=== PATIENT | male | born 1940 | race Two or more races ===

== ENCOUNTER 2025-01-23 10:30 | Inpatient (IN) | payer OTHER ==
[~2025-01-23] VITALS: Ht 170.2 cm; Wt 52.6 kg
[2025-01-23] MEDS ORDERED: ARBLI10 MG/1 ML (10:55)
[2025-01-23] MEDS ORDERED: PRILOSEC10 MG (10:56)
[2025-01-23] MEDS ORDERED: PEPCID AC10 MG (10:56)
[2025-01-23] MEDS ORDERED: METFORMIN HCL500 M3 (10:56)
[2025-01-23 13:54] LABS: BASO % 0.5 % (0.1-1.2); EOS # 0.16 (0.04-0.54); HEMATOCRIT 37.2 % (40.1-51.0); HEMOGLOBIN 12.6 g/dL (13.7-17.5); LYMPH # 0.84 (1.18-3.74); LYMPH % 10.4 % (19.3-53.1); MEAN CORPUSCULAR HEMOGLOBIN 29.7 pg (25.6-32.2); MONO # 0.59 (0.24-0.82); MONO % 7.3 % (4.7-12.5); NEUT # 6.44 (1.56-6.13); NEUT % 79.4 % (34.0-71.1); PLATELET COUNT 245 K/uL (163-369); RED BLOOD COUNT 4.24 M/uL (4.63-6.08); RED CELL DISTRIBUTION WIDTH 14.2 % (11.6-14.4)
[2025-01-23 14:09] LABS: INR 1.03; PARTIAL THROMBOPLASTIN TIME 25.8 SECONDS (22.0-34.0); PROTHROMBIN TIME 11.2 SECONDS (9.0-11.5)
[2025-01-23 14:14] LABS: PH,URINE 6.5 (5.0-8.0); URINE APPEARANCE Clear; URINE BILIRRUBIN Negative (NEGATIVE); URINE BLOOD Negative; URINE COLOR Yellow; URINE KETONE Negative (NEGATIVE); URINE LEUKOCYTE Negative; URINE NITRATE Negative; URINE PROTEIN Negative (NEGATIVE)
[2025-01-23 14:14] LABS: ALBUMIN 3.6 gm/dL (3.4-5.0); BILIRUBIN TOTAL 0.94 mg/dL (0.3-1.2); BILIRUBIN,CONJUGATED 0.3 mg/dL (0.0-0.2); BILIRUBIN,UNCONJUGATED 0.64 mg/dL (0.0-0.6); CALCIUM 9.4 mg/dL (8.5-10.1); CREATININE SERUM 0.78 mg/dL (0.70-1.30); GFR 95.29; GLOBULINA 3.1 G/DL (2.4-3.5); POTASSIUM 4.89 mEq/L (3.5-5.1); TOTAL PROTEIN 6.7 gm/dL (6.4-8.2)
[2025-01-23 14:18] LABS: URINE BACTERIA 4.8 uL (0.0-1933); URINE EPITHELIAL CELLS 1.4 uL (0.0-38.8); URINE RBC 2.3 uL (0.0-20.8); URINE WBC 2.6 uL (0.0-23.2)
[2025-01-23 14:19] LABS: URINE CAST 0.29 uL (0.0-1.40); URINE GLUCOSE 100 MG/DL (NEGATIVE)
[2025-01-23] MEDS ORDERED: ONDANSETRON HCL 4 MG in 0.9 % SODIUM CHLORIDE 50 ML IV PRN (20:15)
[2025-01-23] MEDS ORDERED: MORPHINE SULFATE 2 MG/ML CARTRIDGE IV PRN (20:15)
[2025-01-23] MEDS ORDERED: ACETAMINOPHEN 500 MG GEL..CAP PO PRN (20:15)
[2025-01-23] MEDS ORDERED: FAMOTIDINE/PF 20 MG in 0.9 % SODIUM CHLORIDE 8 ML IV PUSH SCH (20:16)
[2025-01-23] MEDS ORDERED: DEXTROSE 50 % IN WATER 0.5 G/ML DISP.SYRIN IV PRN (20:30)
[2025-01-23] MEDS ORDERED: INSULIN LISPRO 1,000 UNIT/10 ML UNITS SUBCUTANEO PRN (20:30)
[2025-01-23] MEDS ORDERED: 0.9 % SODIUM CHLORIDE 1,000 ML IV SCH (20:30)
[2025-01-24 08:16] VITALS: BP 159/82; O2SAT 97
[2025-01-24] MEDS ORDERED: LOSARTAN POTASSIUM 50 MG TABLET PO SCH (09:00)
[2025-01-24 13:11] LABS: CALCIUM 9.6 mg/dL (8.5-10.1); CHOL HDL RATIO 1.7 (0-5.0); CREATININE SERUM 0.79 mg/dL (0.70-1.30); GFR 93.9; POTASSIUM 3.95 mEq/L (3.5-5.1)
[2025-01-24] MEDS ORDERED: ANIDULAFUNGIN 100 MG VIAL IV NR (14:00)
[2025-01-24] MEDS ORDERED: AA 4.25%/CAL/LYTES/DEXT 5% 1,000 ML PERIFERAL SCH (17:00)
[2025-01-24 17:06] VITALS: BP 154/90
[2025-01-24] MEDS ORDERED: ENALAPRILAT DIHYDRATE 1.25 MG/ML VIAL IV PRN (21:45)
[2025-01-25 01:36] VITALS: BP 153/88
[2025-01-25 06:23] LABS: BASO % 0.4 % (0.1-1.2); EOS # 0.19 (0.04-0.54); EOS % 2.4 % (0.7-7.0); HEMATOCRIT 35.5 % (40.1-51.0); HEMOGLOBIN 12.1 g/dL (13.7-17.5); LYMPH % 7.7 % (19.3-53.1); MEAN CORPUSCULAR HEMOGLOBIN 29.8 pg (25.6-32.2); MONO % 7.7 % (4.7-12.5); NEUT # 6.31 (1.56-6.13); NEUT % 81.4 % (34.0-71.1); PLATELET COUNT 216 K/uL (163-369); RED BLOOD COUNT 4.06 M/uL (4.63-6.08); RED CELL DISTRIBUTION WIDTH 14.1 % (11.6-14.4)
[2025-01-25 06:43] LABS: ALBUMIN 3.2 gm/dL (3.4-5.0); BILIRUBIN TOTAL 1.27 mg/dL (0.3-1.2); CALCIUM 8.6 mg/dL (8.5-10.1); CREATININE SERUM 0.61 mg/dL (0.70-1.30); GFR 126.55; GLOBULINA 2.4 G/DL (2.4-3.5); MAGNESIUM 1.8 mg/dL (1.8-2.4); PHOSPHOROUS 3.7 mg/dL (2.5-4.9); POTASSIUM 4.55 mEq/L (3.5-5.1); TOTAL PROTEIN 5.6 gm/dL (6.4-8.2)
[2025-01-25 06:48] LABS: C-REACTIVE PROTEIN 0.8 MG/DL (0.00-0.29)
[2025-01-25 09:02] VITALS: BP 140/78; O2SAT 99
[2025-01-25] MEDS ORDERED: ANIDULAFUNGIN 100 MG VIAL IV SCH (12:00)
[2025-01-25 16:42] VITALS: BP 132/69; O2SAT 100
[2025-01-25] MEDS ORDERED: ENOXAPARIN SODIUM 60 MG/0.6 ML SYRINGE SUBCUTANEO SCH (21:00)
[2025-01-26 02:53] VITALS: BP 13/70
[2025-01-26 09:35] LABS: BASO % 0.5 % (0.1-1.2); EOS # 0.13 (0.04-0.54); EOS % 1.7 % (0.7-7.0); HEMATOCRIT 36.5 % (40.1-51.0); HEMOGLOBIN 12.6 g/dL (13.7-17.5); MEAN CORPUSCULAR HEMOGLOBIN 29.9 pg (25.6-32.2); MONO # 0.62 (0.24-0.82); NEUT # 6.23 (1.56-6.13); NEUT % 80.4 % (34.0-71.1); PLATELET COUNT 221 K/uL (163-369); RED BLOOD COUNT 4.21 M/uL (4.63-6.08); RED CELL DISTRIBUTION WIDTH 14.1 % (11.6-14.4)
[2025-01-26 09:42] VITALS: BP 159/82; O2SAT 99
[2025-01-26 10:37] LABS: ALBUMIN 3.2 gm/dL (3.4-5.0); BILIRUBIN TOTAL 1.13 mg/dL (0.3-1.2); CALCIUM 8.6 mg/dL (8.5-10.1); CREATININE SERUM 0.58 mg/dL (0.70-1.30); GFR 134.13; GLOBULINA 2.3 G/DL (2.4-3.5); MAGNESIUM 1.9 mg/dL (1.8-2.4); PHOSPHOROUS 3.5 mg/dL (2.5-4.9); POTASSIUM 4.5 mEq/L (3.5-5.1); TOTAL PROTEIN 5.5 gm/dL (6.4-8.2)
[2025-01-26 15:07] LABS: COVID-19 AG NEGATIVE (NEGATIVE)
[2025-01-26 22:41] VITALS: BP 164/82
[2025-01-27 02:20] VITALS: BP 179/81; O2SAT 98
[2025-01-27 07:54] LABS: BILIRUBIN TOTAL 1.09 mg/dL (0.3-1.2); CALCIUM 8.6 mg/dL (8.5-10.1); CREATININE SERUM 0.65 mg/dL (0.70-1.30); GFR 117.6; GLOBULINA 2.3 G/DL (2.4-3.5); POTASSIUM 4.57 mEq/L (3.5-5.1); TOTAL PROTEIN 5.3 gm/dL (6.4-8.2)
[2025-01-27 09:22] VITALS: BP 154/87; O2SAT 98
[2025-01-27 18:30] VITALS: BP 154/86
[2025-01-28 02:43] VITALS: BP 143/81; O2SAT 97
[2025-01-28] MEDS ORDERED: SODIUM CL 0.9% 50 ML IV.SOLN IV ONE (08:54)
[2025-01-28 10:06] VITALS: BP 170/84
[2025-01-28 17:40] VITALS: BP 142/71
[2025-01-28] MEDS ORDERED: ONDANSETRON HCL 2 MG/ML VIAL IV ONE (20:00)
[2025-01-29 01:51] VITALS: BP 184/76; O2SAT 96
[2025-01-29 06:45] LABS: INR 1.05; PARTIAL THROMBOPLASTIN TIME 32.6 SECONDS (22.0-34.0); PROTHROMBIN TIME 11.4 SECONDS (9.0-11.5)
[2025-01-29 06:59] LABS: ALBUMIN 3.1 gm/dL (3.4-5.0); BILIRUBIN TOTAL 0.95 mg/dL (0.3-1.2); BILIRUBIN,CONJUGATED 0.3 mg/dL (0.0-0.2); BILIRUBIN,UNCONJUGATED 0.65 mg/dL (0.0-0.6); CALCIUM 8.9 mg/dL (8.5-10.1); CHOL HDL RATIO 1.6 (0-5.0); CREATININE SERUM 0.7 mg/dL (0.70-1.30); GFR 107.96; GLOBULINA 2.2 G/DL (2.4-3.5); POTASSIUM 4.14 mEq/L (3.5-5.1); TOTAL PROTEIN 5.3 gm/dL (6.4-8.2)
[2025-01-29 07:02] LABS: BASO % 0.6 % (0.1-1.2); EOS # 0.17 (0.04-0.54); EOS % 2.5 % (0.7-7.0); HEMATOCRIT 34.4 % (40.1-51.0); HEMOGLOBIN 11.8 g/dL (13.7-17.5); LYMPH # 0.64 (1.18-3.74); LYMPH % 9.6 % (19.3-53.1); MEAN CORPUSCULAR HEMOGLOBIN 30.1 pg (25.6-32.2); MONO # 0.62 (0.24-0.82); MONO % 9.3 % (4.7-12.5); NEUT # 5.17 (1.56-6.13); NEUT % 77.6 % (34.0-71.1); PLATELET COUNT 185 K/uL (163-369); RED BLOOD COUNT 3.92 M/uL (4.63-6.08); RED CELL DISTRIBUTION WIDTH 14.1 % (11.6-14.4)
[2025-01-29 08:22] VITALS: BP 140/84; O2SAT 98
[2025-01-29] MEDS ORDERED: APIXABAN 2.5 MG TABLET PO SCH (17:00)
[2025-01-29 17:07] VITALS: BP 150/80
[2025-01-30 01:13] VITALS: BP 178/85; O2SAT 96
[2025-01-30 08:22] VITALS: BP 160/80; O2SAT 99
[2025-01-30] MEDS ORDERED: AMLODIPINE BESYLATE 5 MG TABLET PO SCH (10:12)
[2025-01-30 17:49] VITALS: BP 156/82; O2SAT 98
[2025-01-30] MEDS ORDERED: SUCRALFATE 1 G TABLET PO SCH (21:00)
[2025-01-31 02:59] VITALS: BP 163/67; O2SAT 95
[2025-01-31] MEDS ORDERED: FAMOTIDINE/PF 20 MG in 0.9 % SODIUM CHLORIDE 8 ML IV PUSH SCH (05:00)
[2025-01-31 06:20] LABS: BASO % 0.6 % (0.1-1.2); EOS % 2.8 % (0.7-7.0); HEMATOCRIT 35.2 % (40.1-51.0); HEMOGLOBIN 12.2 g/dL (13.7-17.5); LYMPH # 0.65 (1.18-3.74); LYMPH % 9.2 % (19.3-53.1); MEAN CORPUSCULAR HEMOGLOBIN 30.3 pg (25.6-32.2); MONO # 0.64 (0.24-0.82); NEUT # 5.53 (1.56-6.13); NEUT % 78.1 % (34.0-71.1); PLATELET COUNT 202 K/uL (163-369); RED BLOOD COUNT 4.03 M/uL (4.63-6.08); RED CELL DISTRIBUTION WIDTH 13.8 % (11.6-14.4)
[2025-01-31 06:43] LABS: ALBUMIN 3.1 gm/dL (3.4-5.0); BILIRUBIN TOTAL 1.3 mg/dL (0.3-1.2); CALCIUM 8.9 mg/dL (8.5-10.1); CREATININE SERUM 0.58 mg/dL (0.70-1.30); GFR 134.13; GLOBULINA 2.3 G/DL (2.4-3.5); MAGNESIUM 1.5 mg/dL (1.8-2.4); PHOSPHOROUS 3.1 mg/dL (2.5-4.9); POTASSIUM 4.06 mEq/L (3.5-5.1); TOTAL PROTEIN 5.4 gm/dL (6.4-8.2)
[2025-01-31 09:29] VITALS: BP 156/86; O2SAT 98
[2025-01-31] MEDS ORDERED: MAGNESIUM SULFATE IN WATER 50 ML IV NR (09:45)
[2025-01-31] MEDS ORDERED: ELIQUIS2.5 MG PO (17:02)
[2025-01-31] MEDS ORDERED: AMLODIPINE BESYL5 MG PO (17:02)
[2025-01-31] MEDS ORDERED: CARAFATE1 GM PO (17:03)
[2025-01-31] MEDS ORDERED: PROTONIX40 MG PO (17:03)
[2025-01-31 17:23] VITALS: BP 149/84; O2SAT 99
== END 2025-01-31 19:00 | disposition home or self-care (01) | DRG 436 ==
LOC: ER 10:30 → MEDJ 21:08
PROVIDERS: Emergency Medicine; General Practice; Internal Medicine; Internal Medicine Infectious Disease; ADMIT Internal Medicine; ATTEND Internal Medicine
PROC: BW21YZZ Computerized Tomography (CT Scan) of Abdomen and Pelvis using Other Contrast (ICD-10-PCS; 2025-01-23)
PROC: 3E0336Z Introduction of Nutritional Substance into Peripheral Vein, Percutaneous Approach (ICD-10-PCS; 2025-01-24)
PROC: BF4CZZZ Ultrasonography of Hepatobiliary System, All (ICD-10-PCS; 2025-01-26)
PROC: 0FBG8ZX Excision of Pancreas, Via Natural or Artificial Opening Endoscopic, Diagnostic (ICD-10-PCS; principal; 2025-01-26 18:00)
DX: C25.7 Malignant neoplasm of other parts of pancreas (principal); I82.890 Acute embolism and thrombosis of other specified veins; K56.7 Ileus, unspecified; K90.49 Malabsorption due to intolerance, not elsewhere classified; R65.10 Systemic inflammatory response syndrome (SIRS) of non-infectious origin without acute organ dysfunction; R63.0 Anorexia; I10 Essential (primary) hypertension; E11.9 Type 2 diabetes mellitus without complications; Z79.84 Long term (current) use of oral hypoglycemic drugs

== ENCOUNTER 2025-03-10 18:22 | Inpatient (IN) | payer OTHER ==
[~2025-03-10] VITALS: Ht 152.4 cm; Wt 51.7 kg
[~2025-03-10 18:22] MED LIST: AMLODIPINE BESYL5 MG PO; ARBLI10 MG/1 ML; CARAFATE1 GM PO; ELIQUIS2.5 MG PO; METFORMIN HCL500 M3; PEPCID AC10 MG; PRILOSEC10 MG; PROTONIX40 MG PO
[2025-03-10] MEDS ORDERED: SODIUM CHLORIDE 0.45 % 1,000 ML IV SCH (18:45)
[2025-03-10 19:21] LABS: BASO % 0.1 % (0.1-1.2); EOS # 0.02 (0.04-0.54); EOS % 0.1 % (0.7-7.0); LYMPH # 0.37 (1.18-3.74); LYMPH % 2.3 % (19.3-53.1); MEAN PLATELET VOLUME 10.10 fl (9.4-12.4); MONO # 0.74 (0.24-0.82); MONO % 4.7 % (4.7-12.5); NEUT # 14.69 (1.56-6.13); NEUT % 92.4 % (34.0-71.1); RED CELL DISTRIBUTION WIDTH 14.6 % (11.6-14.4)
[2025-03-10 19:42] LABS: INR 1.16
[2025-03-10 19:47] LABS: ALT/SGPT 647.0 U/L (12-78); AST/SGOT 436.0 U/L (15-37); BILIRUBIN TOTAL 7.51 mg/dL (0.3-1.2); BILIRUBIN,CONJUGATED 5.99 mg/dL (0.0-0.2); BUN CREA RATIO 48.0 (7.0-25.0); CREATININE SERUM 0.62 mg/dL (0.70-1.30); GFR 124.2; GLOBULINA 2.0 G/DL (2.4-3.5); GLUCOSE FASTING 130.0 mg/dL (65-100); OSMOLALITY SERUM 280.0 MOSM/KG (275-295)
[2025-03-10 19:55] LABS: ERYTHROCYTE SEDIMENTATION RATE 13 mm/hr (0-20)
[2025-03-10] MEDS ORDERED: INSULIN LISPRO 1,000 UNIT/10 ML UNITS SUBCUTANEO PRN (23:15)
[2025-03-10] MEDS ORDERED: DEXTROSE 50 % IN WATER 0.5 G/ML DISP.SYRIN IV PRN (23:15)
[2025-03-10] MEDS ORDERED: ENALAPRILAT DIHYDRATE 1.25 MG/ML VIAL IV PRN (23:30)
[2025-03-10] MEDS ORDERED: MORPHINE SULFATE 2 MG/ML CARTRIDGE IV PRN (23:30)
[2025-03-10] MEDS ORDERED: 0.9 % SODIUM CHLORIDE 1,000 ML IV SCH (23:30)
[2025-03-10] MEDS ORDERED: PIPERACILLIN/TAZOBACTAM SODIUM 3.375 GM VIAL IV ONE (23:45)
[2025-03-11] MEDS ORDERED: PIPERACILLIN/TAZOBACTAM SODIUM 3.375 GM in 0.9 % SODIUM CHLORIDE 100 ML IV SCH
[2025-03-11 00:46] LABS: URINE APPEARANCE Clear; URINE BILIRRUBIN Large (NEGATIVE); URINE BLOOD Large; URINE COLOR Dark Yellow; URINE KETONE Negative (NEGATIVE); URINE LEUKOCYTE Trace; URINE NITRATE Positive; URINE PROTEIN Negative (NEGATIVE); URINE UROBILINOGEN 2.0 E.U./dl
[2025-03-11 00:52] LABS: URINE BACTERIA 17.9 uL (0.0-1933); URINE EPITHELIAL CELLS 7.2 uL (0.0-38.8); URINE RBC 1741.3 uL (0.0-20.8); URINE WBC 8.1 uL (0.0-23.2)
[2025-03-11 01:00] LABS: TYPE CELLS SQUAMOUS; URINE CAST 0.73 uL (0.0-1.40); URINE GLUCOSE 250 MG/DL (NEGATIVE)
[2025-03-11 01:05] VITALS: BP 127/71; O2SAT 98
[2025-03-11 08:00] VITALS: BP 107/65; O2SAT 95
[2025-03-11] MEDS ORDERED: APIXABAN 2.5 MG TABLET PO SCH (09:00)
[2025-03-11] MEDS ORDERED: PANTOPRAZOLE SODIUM 40 MG/VIAL VIAL IV SCH (12:00)
[2025-03-11] MEDS ORDERED: DEXTROSE 50 % IN WATER 0.5 G/ML VIAL IV PRN (12:30)
[2025-03-11] MEDS ORDERED: MORPHINE SULFATE 2 MG/ML CARTRIDGE IV PRN (15:08)
[2025-03-11 16:16] VITALS: BP 106/69; O2SAT 95
[2025-03-12 01:31] VITALS: BP 107/72; O2SAT 94
[2025-03-12 12:25] VITALS: BP 131/85; O2SAT 100
[2025-03-12 20:56] LABS: BASO % 0.1 % (0.1-1.2); EOS # 0.01 (0.04-0.54); EOS % 0.1 % (0.7-7.0); LYMPH # 0.42 (1.18-3.74); LYMPH % 3.1 % (19.3-53.1); MEAN PLATELET VOLUME 9.80 fl (9.4-12.4); MONO # 0.95 (0.24-0.82); MONO % 6.9 % (4.7-12.5); NEUT # 12.27 (1.56-6.13); NEUT % 89.1 % (34.0-71.1); RED CELL DISTRIBUTION WIDTH 15.2 % (11.6-14.4)
[2025-03-12 22:12] LABS: BILIRUBIN TOTAL 15.57 mg/dL (0.3-1.2); BUN CREA RATIO 40 (7.0-25.0); CREATININE SERUM 0.80 mg/dL (0.70-1.30); GFR 92.55; GLOBULINA 2.4 G/DL (2.4-3.5); GLUCOSE FASTING 143 mg/dL (65-100); OSMOLALITY SERUM 281 MOSM/KG (275-295)
[2025-03-12 22:13] LABS: ALT/SGPT 555 U/L (12-78); AST/SGOT 245 U/L (15-37)
[2025-03-13 03:42] VITALS: BP 104/64; O2SAT 96
[2025-03-13 08:00] VITALS: BP 119/74; O2SAT 96
[2025-03-13] MEDS ORDERED: ENOXAPARIN SODIUM 60 MG/0.6 ML SYRINGE SUBCUTANEO SCH (09:00)
[2025-03-13 16:04] VITALS: BP 121/73; O2SAT 97
[2025-03-14] VITALS: BP 109/66; O2SAT 96
[2025-03-14 08:00] VITALS: BP 123/68; O2SAT 97
[2025-03-14] MEDS ORDERED: MORPHINE SULFATE 2 MG/ML CARTRIDGE IV PRN (08:45)
[2025-03-14 12:46] LABS: BASO % 0.1 % (0.1-1.2); EOS # 0.02 (0.04-0.54); EOS % 0.1 % (0.7-7.0); LYMPH # 0.38 (1.18-3.74); LYMPH % 2.8 % (19.3-53.1); MEAN PLATELET VOLUME 10.90 fl (9.4-12.4); MONO # 0.90 (0.24-0.82); MONO % 6.7 % (4.7-12.5); NEUT # 11.96 (1.56-6.13); NEUT % 89.8 % (34.0-71.1); RED CELL DISTRIBUTION WIDTH 15.5 % (11.6-14.4)
[2025-03-14 13:13] LABS: ALT/SGPT 425.0 U/L (12-78); AST/SGOT 201.0 U/L (15-37); BUN CREA RATIO 46.0 (7.0-25.0); CREATININE SERUM 0.71 mg/dL (0.70-1.30); GFR 106.21; GLOBULINA 2.3 G/DL (2.4-3.5); GLUCOSE FASTING 193.0 mg/dL (65-100); OSMOLALITY SERUM 288.0 MOSM/KG (275-295)
[2025-03-14 13:32] LABS: BILIRUBIN TOTAL 17.18 mg/dL (0.3-1.2)
[2025-03-14 16:00] VITALS: BP 122/71; O2SAT 95
[2025-03-15 00:13] VITALS: BP 100/62; O2SAT 100
[2025-03-15 08:20] VITALS: BP 135/86; O2SAT 96
[2025-03-15] MEDS ORDERED: IOVERSOL 320 MG/ML - 50 ML VIAL IV ONE (08:45)
[2025-03-15] MEDS ORDERED: GLUCAGON 1 MG VIAL IV ONE (08:45)
[2025-03-15 13:10] LABS: ABG PH 7.460 (7.35-7.45)
[2025-03-15 13:11] LABS: ABG PO2 537.8 mmHg (80-100); BICARBONATE 24.7 mmol/l (23-25)
[2025-03-15 13:14] LABS: o2 100 %
[2025-03-15] MEDS ORDERED: NOREPINEPHRINE BITARTRATE 8 MG in DEXTROSE 5 % IN WATER 250 ML IV SCH (16:30)
[2025-03-15] MEDS ORDERED: ANIDULAFUNGIN 100 MG VIAL IV NR (17:00)
[2025-03-15] MEDS ORDERED: MEROPENEM 1,000 MG in 0.9 % SODIUM CHLORIDE 100 ML IV SCH (21:00)
[2025-03-15 21:20] VITALS: BP 118/73; O2SAT 100
[2025-03-15 23:25] VITALS: BP 92/64; O2SAT 100
[2025-03-16] VITALS (11 sets, daily range): BP systolic 82–113; BP diastolic 58–99; O2SAT 99–100
[2025-03-16] MEDS ORDERED: CHLORHEXIDINE GLUCONATE 15ML BRUSH KIT MM SCH (01:00)
[2025-03-16 07:30] LABS: ABG PH 7.486 (7.35-7.45); ABG PO2 243.6 mmHg (80-100); BICARBONATE 25.1 mmol/l (23-25)
[2025-03-16 08:41] LABS: o2 50 %
[2025-03-16] MEDS ORDERED: POLYVINYL ALCOHOL 15 ML DROPS OP SCH (09:00)
[2025-03-16] MEDS ORDERED: RACEPINEPHRINE HCL 0.5 ML AMPUL IH NR (09:30)
[2025-03-16 12:48] LABS: BASO % 0.1 % (0.1-1.2); EOS # 0.01 (0.04-0.54); EOS % 0.1 % (0.7-7.0); LYMPH # 0.22 (1.18-3.74); LYMPH % 1.1 % (19.3-53.1); MEAN PLATELET VOLUME 11.00 fl (9.4-12.4); MONO # 0.65 (0.24-0.82); MONO % 3.3 % (4.7-12.5); NEUT # 18.56 (1.56-6.13); NEUT % 94.8 % (34.0-71.1); RED CELL DISTRIBUTION WIDTH 15.7 % (11.6-14.4)
[2025-03-16 13:14] LABS: ALT/SGPT 274.0 U/L (12-78); AST/SGOT 107.0 U/L (15-37); BILIRUBIN TOTAL 8.08 mg/dL (0.3-1.2); BUN CREA RATIO 58.0 (7.0-25.0); CREATININE SERUM 0.6 mg/dL (0.70-1.30); GFR 128.98; GLOBULINA 1.9 G/DL (2.4-3.5); GLUCOSE FASTING 158.0 mg/dL (65-100); OSMOLALITY SERUM 296.0 MOSM/KG (275-295)
[2025-03-16] MEDS ORDERED: ANIDULAFUNGIN 100 MG VIAL IV SCH (17:00)
[2025-03-17 04:00] VITALS: BP 119/66; O2SAT 100
[2025-03-17 07:44] VITALS: BP 119/66; O2SAT 100
[2025-03-17] MEDS ORDERED: PANTOPRAZOLE SODIUM 80 MG in 0.9 % SODIUM CHLORIDE 100 ML IV SCH (09:30)
[2025-03-17 12:00] VITALS: BP 121/79; O2SAT 100
[2025-03-17] MEDS ORDERED: POTASSIUM CHLORIDE IN WATER 100 ML IV SCH (12:00)
[2025-03-17 15:08] VITALS: BP 112/82; O2SAT 95
[2025-03-17 20:00] VITALS: BP 121/87; O2SAT 100
[2025-03-17 23:31] VITALS: BP 121/87; O2SAT 100
[2025-03-18 04:00] VITALS: BP 125/78; O2SAT 100
[2025-03-18 07:24] VITALS: BP 125/78; O2SAT 100
[2025-03-18 07:58] LABS: BASO % 0.1 % (0.1-1.2); EOS # 0.00 (0.04-0.54); EOS % 0.0 % (0.7-7.0); LYMPH # 0.40 (1.18-3.74); LYMPH % 2.0 % (19.3-53.1); MEAN PLATELET VOLUME 11.10 fl (9.4-12.4); MONO # 0.66 (0.24-0.82); MONO % 3.2 % (4.7-12.5); NEUT # 19.23 (1.56-6.13); NEUT % 94.1 % (34.0-71.1); RED CELL DISTRIBUTION WIDTH 17.2 % (11.6-14.4)
[2025-03-18 08:26] LABS: ALT/SGPT 178.0 U/L (12-78); AST/SGOT 38.0 U/L (15-37); BILIRUBIN TOTAL 6.48 mg/dL (0.3-1.2); BUN CREA RATIO 75.0 (7.0-25.0); CREATININE SERUM 0.59 mg/dL (0.70-1.30); GFR 131.51; GLOBULINA 2.1 G/DL (2.4-3.5); GLUCOSE FASTING 194.0 mg/dL (65-100); OSMOLALITY SERUM 307.0 MOSM/KG (275-295)
[2025-03-18] MEDS ORDERED: MORPHINE SULFATE 2 MG/ML CARTRIDGE IV PRN (09:00)
[2025-03-18 12:00] VITALS: BP 118/90; O2SAT 100
[2025-03-18 15:54] VITALS: BP 113/79; O2SAT 100
[2025-03-18 20:00] VITALS: BP 104/81; O2SAT 100
[2025-03-18] MEDS ORDERED: PANTOPRAZOLE SODIUM 40 MG/VIAL VIAL IV SCH (21:00)
[2025-03-18 23:03] VITALS: BP 104/81; O2SAT 100
[2025-03-19 04:00] VITALS: BP 113/82; O2SAT 100
[2025-03-19 07:04] VITALS: BP 129/85; O2SAT 99
[2025-03-19 12:00] VITALS: BP 107/86; O2SAT 100
[2025-03-19 17:16] VITALS: BP 133/75
[2025-03-19 17:24] VITALS: BP 138/79
[2025-03-20 00:23] VITALS: BP 130/75
== END 2025-03-20 08:48 | disposition expired | DRG 374 ==
LOC: ER 18:22 → SURG 23:49 → ICU 03-15 21:14 → MEDI 03-19 14:47
PROVIDERS: Anesthesiology; Emergency Medicine; Internal Medicine; ADMIT Internal Medicine; ATTEND Internal Medicine
PROC: BF37ZZZ Magnetic Resonance Imaging (MRI) of Pancreas (ICD-10-PCS; 2025-03-11)
PROC: B54DZZZ Ultrasonography of Bilateral Lower Extremity Veins (ICD-10-PCS; 2025-03-11)
PROC: 0W9G3ZZ Drainage of Peritoneal Cavity, Percutaneous Approach (ICD-10-PCS; 2025-03-12)
PROC: BF10YZZ Fluoroscopy of Bile Ducts using Other Contrast (ICD-10-PCS; 2025-03-15)
PROC: 0BH17EZ Insertion of Endotracheal Airway into Trachea, Via Natural or Artificial Opening (ICD-10-PCS; 2025-03-15)
PROC: 5A1935Z Respiratory Ventilation, Less than 24 Consecutive Hours (ICD-10-PCS; 2025-03-15)
PROC: 0D9670Z Drainage of Stomach with Drainage Device, Via Natural or Artificial Opening (ICD-10-PCS; 2025-03-15)
PROC: 4A12X4Z Monitoring of Cardiac Electrical Activity, External Approach (ICD-10-PCS; 2025-03-15)
PROC: 0F798DZ Dilation of Common Bile Duct with Intraluminal Device, Via Natural or Artificial Opening Endoscopic (ICD-10-PCS; principal; 2025-03-15 06:55)
PROC: 0BP1XDZ Removal of Intraluminal Device from Trachea, External Approach (ICD-10-PCS; 2025-03-16)
PROC: 02HV33Z Insertion of Infusion Device into Superior Vena Cava, Percutaneous Approach (ICD-10-PCS; 2025-03-17)
PROC: B548ZZA Ultrasonography of Superior Vena Cava, Guidance (ICD-10-PCS; 2025-03-17)
DX: C78.89 Secondary malignant neoplasm of other digestive organs (principal); B37.1 Pulmonary candidiasis; J95.821 Acute postprocedural respiratory failure; K83.1 Obstruction of bile duct; K26.5 Chronic or unspecified duodenal ulcer with perforation; C25.9 Malignant neoplasm of pancreas, unspecified; R18.8 Other ascites; I97.191 Other postprocedural cardiac functional disturbances following other surgery; K92.0 Hematemesis; J90 Pleural effusion, not elsewhere classified; R78.81 Bacteremia; C78.6 Secondary malignant neoplasm of retroperitoneum and peritoneum; E11.51 Type 2 diabetes mellitus with diabetic peripheral angiopathy without gangrene; R54 Age-related physical debility; I10 Essential (primary) hypertension; Z79.84 Long term (current) use of oral hypoglycemic drugs